=== PATIENT | male | born 2000 | race Hispanic/Latino ===

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

== ENCOUNTER 2021-07-27 03:22 | Emergency (ER) | payer MEDICAID, OTHER ==
[~2021-07-27] VITALS: Ht 185.4 cm; Wt 108.0 kg
[2021-07-27 03:49] LABS: BASOPHILS % (AUTO) 0.4 % (0.0-5.0); EOSINOPHILS % (AUTO) 7.4 % (0.0-8.0); HEMATOCRIT 43.1 % (42-54); LYMPHOCYTES % (AUTO) 43.7 % (21.0-51.0); MEAN CORPUSCULAR HEMOGLOBIN 30.7 pg (27.0-33.0); MEAN CORPUSCULAR HGB CONC 35.3 g/dL (32.0-36.0); MEAN CORPUSCULAR VOLUME 87.1 fL (80-100); MONOCYTES % (AUTO) 6.9 % (3.0-13.0); NEUTROPHILS % (AUTO) 41.5 % (40.0-77.0); PLATELET COUNT (AUTO) 284 K/uL (130-400); RED BLOOD CELL COUNT(AUTO) 4.95 MIL/uL (4.50-6.20); RED CELL DISTRIBUTION WIDTH 13.1 % (11.0-15.5)
[2021-07-27 03:58] LABS: CREATININE 1.1 mg/dL (0.5-1.5); POTASSIUM 3.7 mmol/L (3.5-5.1)
[2021-07-27] MEDS ORDERED: FAMOTIDINE 20MG VIAL IV ONE (04:00)
[2021-07-27] MEDS ORDERED: 0.9%NACL 1000ML 1,000 ML IV ONE (04:00)
[2021-07-27] MEDS ORDERED: ONDANSETRON 4MG INJ IVP ONE (04:00)
[2021-07-27 04:03] LABS: ALBUMIN 3.9 g/dL (3.5-5.0); BILIRUBIN,TOTAL 0.4 mg/dL (0.2-1.0)
[2021-07-27 04:39] VITALS: BP 124/46
[2021-07-27] MEDS ORDERED: ONDA4TAB10 PO (04:42)
== END 2021-07-27 03:45 | disposition home or self-care (01) ==
LOC: EDH 03:22
DX: E86.9 Volume depletion, unspecified (principal); R10.13 Epigastric pain; R11.10 Vomiting, unspecified
CPT/HCPCS: 36415; 80053; 83690; 85025; 96361; 96374; 96375; 99284; J2405; J3490

== ENCOUNTER 2025-01-26 16:49 | Emergency (ER) | payer OTHER, BC ==
[~2025-01-26] VITALS: Ht 185.4 cm; Wt 131.1 kg
[~2025-01-26 16:49] MED LIST: ONDA-243 PO
[2025-01-26 17:28] LABS: IMMATURE GRANULOCYTE ABSOLUTE 0.04 K/uL (0-1); NUCLEATED RED BLOOD CELLS 0.0 % (0.0-0.19); PLATELET COUNT (AUTO) 356 K/uL (130-400); RED BLOOD CELL COUNT(AUTO) 5.54 MIL/uL (4.50-6.20); RED CELL DISTRIBUTION WIDTH 14.3 % (11.0-15.5); WHITE BLOOD COUNT (AUTO) 15.5 K/uL (4.8-10.8)
[2025-01-26 17:39] LABS: CREATININE 1.0 mg/dL (0.5-1.3); GLOMERULAR FILTR. RATE CALC 108.0 mL/min (>90); GLUCOSE,RANDOM 112.0 mg/dL (70-105); SODIUM SERUM 137.0 mmol/L (136-145); UREA NITROGEN, BLOOD 7.0 mg/dL (7-18)
[2025-01-26 17:43] LABS: ASPARTATE AMINOTRANSFERASE 28.0 U/L (10-37); TOTAL PROTEIN, SERUM 8.1 g/dL (6.0-8.3)
--- NOTE | 2025-01-26 18:19 | ERN ---
ED Note History of Present Illness Stated Complaint: ABD PAIN Chief Complaint: Abdominal Pain Time Seen by MD: 17:09 Time Seen by Midlevel: 17:09 Dictation: The patient is a 24-year-old male with no past medical history who presents to the emergency department with generalized abdominal pain associated with nausea nonbloody vomiting, nonbloody diarrhea onset yesterday. Patient denies any fevers. Allergies: Coded Allergies: No Known Drug Allergies (Unverified Allergy, Unknown, 07/27/21) Home Meds Active Scripts Ondansetron (Ondansetron Odt) 4 Mg Tab.rapdis, 4 MG PO TIDP PRN for NAUSEA/VOMITING, #1 TAB 0 Refills Prov:DIANNE SANTIAGO MD 07/27/21 Past Medical History Past Medical History: No Pertinent History Surgical History: None Social History: Other RN Note Reviewed/Agreed w/PFSH: Yes Review of System Dictation Constitutional: Negative for fever,chills, and weight loss Eyes: Negative for injury, pain,redness, and discharge ENT: Negative for injury,pain or swelling Cardiovascular: Negative for chest pain, palpitations, and edema Respiratory: Negative for shortness of breath, cough, and wheezing, Abdomen/GI: Negative for constipation positive for abdominal pain, nausea, vomiting, diarrhea, Back: Negative for injury and pain : Negative for injury, bleeding and discharge MS/Extremity: Negative for injury and deformity Skin: Negative for rash, and discoloration Neuro: Negative for headache, weakness, numbness, tingling, and seizure Psych: Negative for suicide ideation, homicidal ideation, and hallucinations Initial Vital Sign VS Vital Signs Date Time Temp Pulse Resp B/P (MAP) Pulse Ox O2 Delivery O2 Flow Rate FiO2 01/26/25 16:51 98.8 90 16 131/85 99 Room Air 0 01/26/25 19:34 21 Physical Exam Dictation Vital Signs reviewed General Appearance: Alert, oriented x 3, no acute distress, well developed, nourished. Head and Face: non-traumatic. Eyes: PERRL, pink conjunctivas, eyelid no trauma, anterior chamber with arcus senilis. Ears: Pinnas intact and no signs of trauma or erythema ear canals clear and no discharge TM no erythema Nose: No discharge, no bleeding. Oropharynx: Mouth normal, tongue pink. pharynx clear,no erythema, tonsils no exudates, no abscesses noted, mucous membrane moist Neck: Supple, non-tender, no thyromegaly, no masses, no JVD, no bruits Breast:Deferred Chest:No tenderness, no crepitus, no paradoxical movement, no retractions Lungs:Clear, well-ventilated, symmetric, no rales, no wheezing, no rhonchi, no stridor, good breath sounds bilaterally Heart: Regular rate, regular rhythm, no murmur, no gallops Vascular: no peripheral edema, Abdomen: Soft, positive bowel sounds, nondistended, no guarding, Right lower quadrant tenderness, no rebound, no masses no hepatomegaly, no splenomegaly, no Bhatia's sign, no hernias. Rectal: Deferred Genital: Deferred Neurological: Normal speech, motor function intact, sensory function intact Musculoskeletal: Neck nontender, full range of motion, back nontender, full range of motion, Extremities: nontender, full range of motion Skin: Color pink, dry, no turgor, no rash, no lacerations, no abrasions, no contusions. Lymphatic: Deferred Results (Laboratory/Radiology) Laboratory/Radiology Laboratory Tests Test 01/26/25 17:18 01/26/25 19:15 White Blood Count 15.5 K/uL (4.8-10.8) H Red Blood Count 5.54 MIL/uL (4.50-6.20) Hemoglobin 16.9 g/dL (14.0-18.0) Hematocrit 49.5 % (42-54) Mean Corpuscular Volume 89.4 fL (79-99) Mean Corpuscular Hemoglobin 30.5 pg (27.0-33.0) Mean Corpuscular Hemoglobin Concent 34.1 g/dL (32.0-36.0) Red Cell Distribution Width 14.3 % (11.0-15.5) Platelet Count 356 K/uL (130-400) Mean Platelet Volume 9.0 fL (7.5-10.5) Immature Granulocyte % (Auto) 0.3 % (0-1) Neutrophils (%) (Auto) 89.9 % (40.0-77.0) H Lymphocytes (%) (Auto) 4.9 % (21.0-51.0) L Monocytes (%) (Auto) 4.2 % (3.0-13.0) Eosinophils (%) (Auto) 0.5 % (0.0-8.0) Basophils (%) (Auto) 0.2 % (0.0-5.0) Neutrophils # (Auto) 14.0 K/uL (1.8-7.7) H Lymphocytes # (Auto) 0.8 K/uL (1.0-4.8) L Monocytes # (Auto) 0.7 K/uL (0.1-1.0) Eosinophils # (Auto) 0.07 K/uL (0.00-0.70) Basophils # (Auto) 0.03 K/uL (0.00-0.20) Absolute Immature Granulocyte (auto 0.04 K/uL (0-1) Nucleated Red Blood Cells 0.0 % (0.0-0.19) White Cell Morphology Comment See comments Sodium Level 137 mmol/L (136-145) Potassium Level 4.4 mmol/L (3.5-5.1) Chloride Level 102 mmol/L (101-111) Carbon Dioxide Level 25 mmol/L (21-32) Blood Urea Nitrogen 7 mg/dL (7-18) Creatinine 1.0 mg/dL (0.5-1.3) Glomerular Filtration Rate Calc 108 mL/min (>90) Random Glucose 112 mg/dL (70-105) H Total Calcium 9.2 mg/dL (8.5-10.1) Total Bilirubin 0.7 mg/dL (0.2-1.0) Direct Bilirubin 0.2 mg/dL (0.0-0.3) Aspartate Amino Transf (AST/SGOT) 28 U/L (10-37) Alanine Aminotransferase (ALT/SGPT) 28 U/L (12-78) Alkaline Phosphatase 70 U/L (50-136) Total Protein 8.1 g/dL (6.0-8.3) Albumin 4.4 g/dL (3.5-5.0) Lipase 33 U/L (16-77) Urine Color YELLOW (YELLOW) Urine Appearance CLEAR (CLEAR) Urine pH 5.5 (5.0-8.0) Urine Specific [place] 1.022 (1.001-1.031) Urine Protein NEGATIVE mg/dL (NEGATIVE) Urine Glucose (UA) NEGATIVE mg/dL (NEGATIVE) Urine Ketones NEGATIVE mg/dL (NEGATIVE) Urine Occult Blood NEGATIVE (NEGATIVE) Urine Nitrate NEGATIVE (NEGATIVE) Urine Bilirubin NEGATIVE mg/dL (NEGATIVE) Urine Urobilinogen 0.2 mg/dL (0.2-1.0) Urine Leukocyte Esterase NEGATIVE [place]/uL REASON: Abdominal Pain,rlq tenderness ORDERING PHYSICIAN: MARIN LUONG PROCEDURE: ABD PEL W - CT ABDOMEN/PELVIS W/CONTRAST EXAM: CT Abdomen and Pelvis with IV contrast. CLINICAL HISTORY: Abdominal Pain, RLQ tenderness TECHNIQUE: Axial computed tomography images of the abdomen and pelvis with intravenous contrast. COMPARISON: None provided. FINDINGS: LUNG BASES: The lung bases appear clear. No pleural effusions are seen. LIVER: The liver measures 18 cm with mild fatty infiltration. GALLBLADDER AND BILE DUCTS: The gallbladder appears within normal limits. No radioopaque gallstones are seen. No biliary ductal dilatation is evident. PANCREAS: Unremarkable. SPLEEN: Unremarkable. ADRENAL GLANDS: Unremarkable. KIDNEYS, URETERS, AND BLADDER: The kidneys appear within normal limits. There is no hydronephrosis or hydroureter. No urinary calculi are seen. STOMACH AND BOWEL: Unremarkable appearance of the stomach and bowel. No evidence of bowel obstruction. Mildly oedematous bowel wall thickening is seen involving the terminal ileum, concerning for enteritis. Few reactive subcentimetric lymphadenopathies are also seen in [facility] APPENDIX: No evidence of acute appendicitis on CT examination. PERITONEUM: No free fluid. No free air. REPRODUCTIVE: Unremarkable as visualized. VASCULATURE: No evidence of abdominal aortic aneurysm. BONES: No aggressive appearing osseous lesion. No acute osseous pathology evident. IMPRESSION: No acute intra-abdominal or pelvic abnormality. Mild hepatomegaly with fatty infiltration. Mildly oedematous bowel wall thickening involving the terminal ileum, concerning for enteritis. A few reactive subcentimetric lymphadenopathies are also seen in [facility] Reviewed?: Yes ED Course ED Course Orders Procedure Category Date Status Time Cbc With Differential LAB 01/26/25 Complete 17:12 Urinalysis Profile LAB 01/26/25 Complete 17:12 0.9%Nacl 1000ml (Ns PHA 01/26/25 Complete 1000ml) 17:30 Ondansetron 4mg Inj PHA 01/26/25 Complete (Zofran 4mg Inj) 17:30 Pantoprazole 40mg Inj PHA 01/26/25 Complete (Protonix 40mg Inj 17:30 Lipase LAB 01/26/25 Complete 17:12 Basic Metabolic Panel LAB 01/26/25 Complete 17:12 Hepatic Function Panel LAB 01/26/25 Complete 17:12 Ct Abdomen/Pelvis CT 01/26/25 Resulted W/Contrast 17:46 Iohexol (Omnipaque) PHA 01/26/25 Complete 19:37 Current Medications Medications (Trade) Dose Ordered Sig/Carol Route PRN Reason Start Time Stop Time Status Last Admin Dose Admin Iohexol (Omnipaque) 75 ml STK-MED ONCE IV 01/26/25 19:37 01/26/25 19:38 DC Ondansetron HCl (zoFRAN 4MG INJ) 4 mg ONCE ONCE IVP 01/26/25 17:30 01/26/25 17:31 DC 01/26/25 19:41 Pantoprazole Sodium (PROTonix 40MG INJ) 40 mg ONCE ONCE IVP 01/26/25 17:30 01/26/25 17:31 DC 01/26/25 19:41 Sodium Chloride 1,000 ml @ 0 mls/hr ONCE ONCE IV 01/26/25 17:30 01/26/25 17:31 DC 01/26/25 19:41 Vital Signs Date Time Temp Pulse Resp B/P (MAP) Pulse Ox O2 Delivery O2 Flow Rate FiO2 01/26/25 19:34 98.8 88 17 145/80 98 Room Air* 0 21 01/26/25 16:51 98.8 90 16 131/85 99 Room Air 0 Medical Decision Making MDM The patient is a 24-year-old male with no past medical history who presents to the emergency department with generalized abdominal pain associated with nausea nonbloody vomiting, nonbloody diarrhea onset yesterday. Patient denies any fevers. CBC showed leukocytosis, no anemia, chemistry showed no electrolyte imbalance, normal liver enzymes, normal lipase, urinalysis was unremarkable. CT abdomen showed enteritis and lymphadenitis. Patient with a right lower tenderness but no evidence of appendicitis. On physical exam patient in no acute distress, nontoxic appearance. We will discharge patient to follow up with PCP. Differential diagnosis: Appendicitis, gastroenteritis, dehydration, electrolyte imbalance, gastritis Need for hospitalization: Patient does not meet criteria for hospitalization. There are no social concerns with this patient. DX & DISP Disposition: Discharge Departure Impression: Primary Impression: Gastroenteritis Additional Impression: Nausea and vomiting Condition: Stable Scripts Dicyclomine HCl (Bentyl) 20 Mg Tab 1 TAB PO BID for irritable bowel symptoms for 10 Days, #60 TAB 0 Refills Prov: MARIN LUONG [facility] PEELER 01/26/25 Ondansetron (Ondansetron Odt) 4 Mg Tab.rapdis 4 MG PO Q6HPRN PRN for nausea, #16 TAB 0 Refills Prov: MARIN LUONG [facility] 01/26/25 Additional Instructions: Please follow up with your primary doctor in 1-2 days. Take your medications as prescribed. If anything worsens please return to ER. FOLLOW-UP WITH PRIMARY CARE PROVIDER IN 1 TO 2 DAYS. TAKE MEDICATIONS DIRECTED HERE IN THE EMERGENCY ROOM. OKAY TO CONTINUE HOME MEDICATIONS UNLESS OTHERWISE DISCUSSED DURING YOUR VISIT IN THE EMERGENCY ROOM TODAY. RETURN TO YOUR NEAREST EMERGENCY ROOM IF SYMPTOMS WORSEN OR IF THERE IS NO IMPROVEMENT. CALL 911 IF YOU NEED IMMEDIATE ASSISTANCE. TAKE TYLENOL [id number] NEEDED AND IF NO CONTRAINDICATIONS ARE PRESENT. INCREASE ORAL HYDRATION. A WOUND CULTURE OR URINE CULTURE WAS ORDERED HERE IN THE EMERGENCY ROOM DEPARTMENT PLEASE FOLLOW-UP WITH PRIMARY CARE PROVIDER AND ADVISE THEM TO GET REPEAT PORTS FROM OUR FACILITY. IF YOU HAD ANY KYLEE WRAP/SPLINTS THAT WERE APPLIED HERE, PLEASE DO NOT REMOVE THEM UNTIL YOU SEE YOUR PRIMARY CARE OR SPECIALTY. Referrals: REGINALD GALVEZ (PCP) Time of Disposition: 21:06 I have reviewed the case, and I agree with, Diagnosis and Plan MARIN LUONG [facility] Jan 26, 2025 18:19
[2025-01-26 19:26] LABS: APPEARANCE,URINE CLEAR (CLEAR); GLUCOSE, URINE (UA) NEGATIVE (NEGATIVE); LEUKOCYTE ESTERASE ,URINE NEGATIVE Leu/uL (NEGATIVE); NITRATE,URINE NEGATIVE (NEGATIVE); OCCULT BLOOD,URINE NEGATIVE (NEGATIVE)
[2025-01-26 19:27] LABS: ADD UA MICROSCOPIC NO
--- NOTE | 2025-01-26 19:34 | NUR ---
PT CARE ASSUMED AT THIS TIME
[2025-01-26] MEDS ORDERED: IOHEXOL-350 75 ML VIAL IV ONE (19:37)
[2025-01-26] MEDS: 0.9%NACL 1000ML 1,000 ML IV ONE (19:41)
--- NOTE | 2025-01-26 20:38 | HMCIMG ---
EXAM: CT Abdomen and Pelvis with IV contrast. CLINICAL HISTORY: Abdominal Pain, RLQ tenderness TECHNIQUE: Axial computed tomography images of the abdomen and pelvis with intravenous contrast. COMPARISON: None provided. FINDINGS: LUNG BASES: The lung bases appear clear. No pleural effusions are seen. LIVER: The liver measures 18 cm with mild fatty infiltration. GALLBLADDER AND BILE DUCTS: The gallbladder appears within normal limits. No radioopaque gallstones are seen. No biliary ductal dilatation is evident. PANCREAS: Unremarkable. SPLEEN: Unremarkable. ADRENAL GLANDS: Unremarkable. KIDNEYS, URETERS, AND BLADDER: The kidneys appear within normal limits. There is no hydronephrosis or hydroureter. No urinary calculi are seen. STOMACH AND BOWEL: Unremarkable appearance of the stomach and bowel. No evidence of bowel obstruction. Mildly oedematous bowel wall thickening is seen involving the terminal ileum, concerning for enteritis. Few reactive subcentimetric lymphadenopathies are also seen in RIF APPENDIX: No evidence of acute appendicitis on CT examination. PERITONEUM: No free fluid. No free air. REPRODUCTIVE: Unremarkable as visualized. VASCULATURE: No evidence of abdominal aortic aneurysm. BONES: No aggressive appearing osseous lesion. No acute osseous pathology evident. IMPRESSION: No acute intra-abdominal or pelvic abnormality. Mild hepatomegaly with fatty infiltration. Mildly oedematous bowel wall thickening involving the terminal ileum, concerning for enteritis. A few reactive subcentimetric lymphadenopathies are also seen in RIF /[place]
[2025-01-26] MEDS ORDERED: ONDA-243 PO (21:07)
[2025-01-26] MEDS ORDERED: DICY20TA2 PO (21:07)
[2025-01-26 22:04] VITALS: BP 137/88; PULSE 70; RESP 15; TEMP 98.8; O2SAT 98
== END 2025-01-26 22:06 | disposition home or self-care (01) ==
LOC: EDH 16:49
DX: K52.9 Noninfective gastroenteritis and colitis, unspecified (principal); Z79.899 Other long term (current) drug therapy
CPT/HCPCS: 99285; 74177; 96374; 96361; 96375; 80076; 80048; 83690; 85025; 81003; 36415; J7030; J2405; J2470; Q9967